=== PATIENT | male | born 1990 | race African-American/Black ===

== ENCOUNTER 2019-04-13 20:56 | Emergency (ER) | payer BC, MEDICAID ==
[~2019-04-13] VITALS: Ht 167.6 cm; Wt 72.6 kg
--- NOTE | 2019-04-13 21:23 | NUR ---
ED Nurse Note: pt presents to ED c/o congestion x 1 month. pt states that it feels like his head and chest are congested, he has also had mucus drainage from his nose. pt denies cough. he also c/o fatigue x9 days. pt took dayquil and sudafed without relief of symptoms
[2019-04-13 21:25] VITALS: BP 127/69
--- NOTE | 2019-04-13 21:30 | Emergency Room Report ---
History of Present Illness General Chief Complaint: Upper Respiratory Illness Source: Patient Present Illness [facility] This a 28-year-old male with no past medical history. He presents with chief complaint of chest congestion. He said is been ongoing for a month. He said he is is coughing and shortness of breath. No fever chills but no nausea no vomiting. Nothing made it better. Nothing made it worse. [id number]-[id number] medication not helping. Allergies: Coded Allergies: No Known Allergies (Unverified , 04/13/19) Patient History Past Medical History: see triage record, old chart reviewed Past Surgical History: none Pertinent Family History: none Social History: Denies: smoking Immunizations: other Reviewed Nursing Documentation: PMH: Agreed; PSxH: Agreed Nursing Documentation-PMH Past Medical History: No Stated History Review of Systems Eye: Denies: eye pain, blurred vision ENT: Denies: ear pain, nose congestion, throat swelling Respiratory: Reports: cough; Denies: shortness of breath Cardiovascular: Denies: chest pain, palpitations Gastrointestinal: Denies: abdominal pain, diarrhea, nausea, vomiting Musculoskeletal: Denies: back pain, joint pain Skin: Denies: rash Neurological: Denies: headache, numbness Endocrine: Denies: increased thirst, increased urine Hematologic/Lymphatic: Denies: easy bruising All Other Systems: negative except mentioned in HPI Physical Exam Vital Signs Date Time Temp Pulse Resp B/P (MAP) Pulse Ox O2 Delivery O2 Flow Rate FiO2 04/13/19 21:11 97.9 74 16 127/69 (88) 96 Vitals normal Sp02 EP Interpretation: reviewed, normal General Appearance: well appearing, no apparent distress, alert Head: normocephalic, atraumatic Eyes: bilateral eye PERRL, bilateral eye EOMI ENT: hearing grossly normal, normal pharynx Neck: full range of motion, supple, no meningismus Respiratory: chest non-tender, lungs clear, normal breath sounds Cardiovascular #1: regular rate, rhythm, no murmur Gastrointestinal: normal bowel sounds, non tender, no mass, no organomegaly, no bruit, non-distended Musculoskeletal: back normal, normal range of motion, gait/station normal Psychiatric: mood/affect normal Medical Decision Making Diagnostic Impression: Primary Impression: Chest congestion ER Course Patient presents with chest congestion. He is very comfortable. No coughing here. Lungs are clear. Chest x-ray is negative. I see no evidence of ACS, PE , dissection to name a few. Because been going on for a month, will go ahead and put him on antibiotics. This may be allergy related. Will discharge home. Chest X-Ray Diagnostic Results Chest X-Ray Diagnostic Results : Chest X-Ray Ordered: Yes # of Views/Limited/Complete: 1 View Indication: Shortness of Breath EP Interpretation: Yes Interpretation: no consolidation, no effusion, no pneumothorax, no acute cardiopulmonary disease Impression: No acute disease Electronically Signed by: Tone Heller MD Last Vital Signs Date Time Temp Pulse Resp B/P (MAP) Pulse Ox O2 Delivery O2 Flow Rate FiO2 04/13/19 21:25 74 16 04/13/19 21:25 97.9 127/69 96 Status: improved Disposition: HOME, SELF-CARE Condition: Stable Scripts Azithromycin* (ZITHROMAX*) 250 Mg Tablet 250 MG ORAL DAILY, #6 TAB 0 Refills Take two tables once daily for 1 day, then one tablet once daily for 4 days. Prov: Tone Heller MD 04/13/19 Guaifenesin/Dextromethorphan (Guaifenesin-Dm 200-20 mg/10 ml) 10 Ml Liquid 10 ML PO Q6HR, #240 ML Prov: Tone Heller MD 04/13/19 Patient Instructions: Upper Respiratory Infection, Adult Additional Instructions: Follow-up with your doctor in 7 days. Return if symptoms worsen. Tone Heller MD Apr 13, 2019 21:30
[2019-04-13] MEDS ORDERED: ZITHROMAX250 MG ORAL (21:34)
[2019-04-13] MEDS ORDERED: GUAIFENESIN-DM10 ML PO (21:34)
[2019-04-13] MEDS ORDERED: ALBUTEROL SULF8.5 GM INH (21:47)
[2019-04-13 21:48] VITALS: BP 127/69
--- NOTE | 2019-04-13 21:48 | NUR ---
ED Nurse Note: Pt cleared by health care Provider for discharge. DC instructions/prescription was given and explained to pt and verbalized understanding of teachings. All medical deviecs such as ID band removed. Pt is AAO x4, ambulatory and left with all personal belongings.
--- NOTE | 2019-04-13 22:15 | Diagnostic Imaging Report ---
EXAM: XR Chest, 1 View CLINICAL HISTORY: SOB TECHNIQUE: Frontal view of the chest. COMPARISON: No relevant prior studies available. FINDINGS: Lungs: Unremarkable. No consolidation. Pleural space: Unremarkable. No pneumothorax. Heart: Unremarkable. No cardiomegaly. Mediastinum: Unremarkable. Bones/joints: Unremarkable. IMPRESSION: Unremarkable chest x-ray.
== END 2019-04-13 21:48 | disposition home or self-care (01) ==
LOC: EMR 21:15
DX: R09.89 Other specified symptoms and signs involving the circulatory and respiratory systems (principal)
CPT/HCPCS: 71045; 99283

== ENCOUNTER 2020-05-18 10:19 | Emergency (ER) | payer BC, MEDICAID ==
[~2020-05-18] VITALS: Ht 167.6 cm; Wt 77.1 kg
[~2020-05-18 10:19] MED LIST: ALBUTEROL SULF8.5 GM INH; GUAIFENESIN-DM10 ML PO; ZITHROMAX250 MG ORAL
[2020-05-18 10:34] VITALS: BP 138/76
--- NOTE | 2020-05-18 10:34 | NUR ---
pt arrives to ER with complaints of possible STD exposure. pt states partner recently being treated for trich after intercourse. pt states no symptoms at this time.
--- NOTE | 2020-05-18 10:41 | Emergency Room Report ---
History of Present Illness General Chief Complaint: Male Urogenital Problems Source: Patient Present Illness HPI Patient presents as someone he had a sexual encounter with several months ago recently contacted him saying that she has trichomonas. She had one other partner possibly after the sexual encounter but the patient is uncertain. He has no symptoms. The patient is uncircumcised. He denies discharge, hematuria, dysuria, lymphadenopathy, fevers chills sore throat rashes. Patient has a history of asthma. Requesting a refill on inhaler. Denies wheezing at this time. The patient denies exposure to Covid positive contacts. Allergies: Coded Allergies: No Known Allergies (Unverified , 04/13/19) COVID-19 Screening Contact w/high risk pt: No Experienced COVID-19 symptoms?: No COVID-19 Testing performed [employer]: No COVID-19 Screening: Negative COVID-19 Patient History Past Medical History: see triage record Social History: Denies: smoking Social History Narrative From home Reviewed Nursing Documentation: PMH: Agreed; PSxH: Agreed Nursing Documentation-PMH Hx Cardiac Problems: No Hx Hypertension: No Hx Pacemaker: No Hx Asthma: No Hx COPD: No Hx Diabetes: No Hx Cancer: No Hx Gastrointestinal Problems: No Hx Dialysis: No History Of Psychiatric Problem: No Hx Neurological Problems: No Hx Cerebrovascular Accident: No Hx Seizures: No Review of Systems Constitutional: Reports: see HPI ENT: Denies: throat pain Respiratory: Reports: see HPI Genitourinary: Reports: see HPI Skin: Reports: see HPI Hematologic/Lymphatic: Reports: see HPI Physical Exam Vital Signs Date Time Temp Pulse Resp B/P (MAP) Pulse Ox O2 Delivery O2 Flow Rate FiO2 05/18/20 10:30 97.9 66 18 138/76 (96) 98 Room Air Sp02 EP Interpretation: reviewed, normal General Appearance: well appearing, no apparent distress, GCS 15 Head: normocephalic Eyes: bilateral eye normal inspection, bilateral eye PERRL ENT: moist mucus membranes Respiratory: lungs clear, normal breath sounds Cardiovascular #1: regular rate, rhythm Gastrointestinal: normal inspection Genitourinary: normal inspection, penis normal, other - Uncircumcised Musculoskeletal: gait/station normal Neurologic: alert, oriented x3, grossly normal Psychiatric: mood/affect normal Skin: normal color, no rash - On exposed areas of skin, other - Fully dressed Lymphatic: no adenopathy Medical Decision Making Diagnostic Impression: Primary Impression: Evaluation for possible exposure to Trichomonas Additional Impression: Asthma Qualified Codes: J45.20 - Mild intermittent asthma, uncomplicated ER Course Patient presents after being notified that he might have been exposed to trichomonas. Patient is asymptomatic. Urinalysis will be sent and also chlamydia and gonorrhea will be ordered from the urinalysis. At this point treatment for these is not indicated. Depending on urinalysis we may give him a prescription for Flagyl. UA clear. Discussed with patient. Suspicion is low for Trichomonas. Electing not to treat at this time. Flagyl was offered. Advised to follow up. Albuterol requested. Stable for outpatient observation and treatment. Laboratory Tests Test 05/18/20 10:44 Urine Color Pale yellow Urine Appearance Clear Urine pH 6 (4.5-8.0) Urine Specific [place] 1.015 (1.005-1.035) Urine Protein Negative (NEGATIVE) Urine Glucose (UA) Negative (NEGATIVE) Urine Ketones Negative (NEGATIVE) Urine Blood Negative (NEGATIVE) Urine Nitrite Negative (NEGATIVE) Urine Bilirubin Negative (NEGATIVE) Urine Urobilinogen 1 MG/DL (0.0-1.0) H Urine Leukocyte Esterase Negative (NEGATIVE) Last Vital Signs Date Time Temp Pulse Resp B/P (MAP) Pulse Ox O2 Delivery O2 Flow Rate FiO2 05/18/20 10:34 97.9 18 138/76 98 Room Air 05/18/20 10:30 66 Status: unchanged Disposition: HOME, SELF-CARE Condition: Stable Scripts Albuterol Sulfate* (Albuterol Sulfate Hfa*) 8.5 Gm Hfa.aer.ad 2 PUFF INH Q6H, #1 INH 1 Refill Prov: Cain Chavez MD 05/18/20 Cain Chavez MD May 18, 2020 10:41
[2020-05-18] MEDS ORDERED: ALBUTEROL SULF8.5 G1 INH (10:42)
[2020-05-18 10:57] LABS: APPEARANCE,URINE CLEAR; BILIRUBIN, URINE NEGATIVE (NEGATIVE); GLUCOSE, URINE (UA) NEGATIVE (NEGATIVE); KETONES,URINE NEGATIVE (NEGATIVE); LEUKOCYTE ESTERASE ,URINE NEGATIVE (NEGATIVE); NITRITE,URINE NEGATIVE (NEGATIVE); PH,URINE 6 (4.5-8.0); PROTEIN,URINE NEGATIVE (NEGATIVE); UROBILINOGEN,URINE 1 MG/DL (0.0-1.0)
[2020-05-18 11:05] LABS: COLOR,URINE PALE YELLOW
== END 2020-05-18 11:26 | disposition home or self-care (01) ==
LOC: EMR 10:49
DX: Z20.89 Contact with and (suspected) exposure to other communicable diseases (principal); J45.20 Mild intermittent asthma, uncomplicated
CPT/HCPCS: 81003; 87491; 87590; 99283